=== PATIENT | female | born 1970 | race Hispanic/Latino ===

== ENCOUNTER 2018-02-26 10:40 | Emergency (ER) | payer BC ==
[2018-02-26 10:43] VITALS: BMI 25.3
[2018-02-26 11:00] VITALS: RESP 20; TEMP 98.7; O2SAT 100
[2018-02-26] MEDS ORDERED: Albuterol-Ipratrop 3 mg / 0.5 (3 ml) UD IH STA (11:29)
--- NOTE | 2018-02-26 11:35 | ED PDOC ---
Arrival/HPI - General Chief Complaint: Shortness Of Breath Time Seen by Provider: 02/26/18 10:58 Historian: Patient - History of Present Illness Narrative History of Present Illness (Text): 02/26/18 11:32 47 year old female, with past medical history of asthma, mild COPD, hypothyroidism, sciatica and pneumonia, presents to the Emergency department complaining of ongoing shortness of breath and chest pain since November. Patient informs worsening symptoms this morning associated with palpitations, dizziness and generalized weakness. Patient states chronic constipation but denies any fever, chills, nausea, vomiting, diarrhea, abdominal pain or any other complaints. PMD: Dr. Tarango Time/Duration: > month Symptom Onset: Gradual Symptom Course: Unchanged Quality: Aching Activities at Onset: Light Context: Home Past Medical History - Provider Review Nursing Documentation Reviewed: Yes - Infectious Disease Hx of Infectious Diseases: None - Cardiac Hx Cardiac Disorders: No - Pulmonary Hx Asthma: Yes Hx Bronchitis: Yes - Neurological Hx Migraine: Yes - HEENT Hx HEENT Disorder: No - Renal Hx Renal Disorder: No - Endocrine/Metabolic Hx Hypothyroidism: Yes - Hematological/Oncological Hx Blood Disorders: No - Integumentary Hx Dermatological Disorder: No - Musculoskeletal/Rheumatological Hx Musculoskeletal Disorders: No - Gastrointestinal Hx Irritable Bowel: Yes - Genitourinary/Gynecological Hx Genitourinary Disorders: No - Psychiatric Hx Psychophysiologic Disorder: No Hx Substance Use: No - Surgical History Hx Gastric Bypass Surgery: Yes Hx Hysterectomy: Yes (partial) Hx Tonsillectomy: Yes - Anesthesia Hx Anesthesia: Yes Hx Anesthesia Reactions: No Hx Malignant Hyperthermia: No Family/Social History - Physician Review Nursing Documentation Reviewed: Yes Family/Social History: No Known Family HX Smoking Status: Never Smoked Hx Alcohol Use: No Hx Substance Use: No Allergies/Home Meds Allergies/Adverse Reactions: Allergies No Known Allergies Allergy (Verified 09/02/16 17:40) Home Medications: Home Meds Medication Instructions Recorded Confirmed Levothyroxine Sodium [Synthroid] 0.25 mcg PO DAILY 11/02/15 02/26/18 Escitalopram [Lexapro] 5 mg PO DAILY 08/06/16 02/26/18 Plecanatide [Trulance] 1 mg PO DAILY 02/26/18 02/26/18 Review of Systems - Physician Review All systems were reviewed & negative as marked: Yes - Review of Systems Constitutional: Normal. absent: Fevers Eyes: Normal ENT: Normal Respiratory: SOB Cardiovascular: Chest Pain, Palpitations Gastrointestinal: Constipation (chronic). absent: Abdominal Pain, Diarrhea, Nausea, Vomiting Genitourinary Female: Normal Musculoskeletal: Normal Skin: Normal Neurological: Dizziness Endocrine: Normal Hemo/Lymphatic: Normal Psychiatric: Normal Physical Exam Vital Signs Reviewed: Yes Vital Signs Temp Pulse Resp BP Pulse Ox 02/26/18 12:27 98 H 20 118/62 100 02/26/18 10:40 98.7 F 79 20 122/79 100 Temperature: Afebrile Blood Pressure: Normal Pulse: Regular Respiratory Rate: Normal Appearance: Positive for: Well-Appearing, Non-Toxic, Comfortable Pain Distress: None Mental Status: Positive for: Alert and Oriented X 3, other (flat emotionally) - Systems Exam Head: Present: Atraumatic, Normocephalic Pupils: Present: PERRL Extroacular Muscles: Present: EOMI Conjunctiva: Present: Normal Mouth: Present: Moist Mucous Membranes Neck: Present: Normal Range of Motion Respiratory/Chest: Present: Clear to Auscultation, Good Air Exchange. No: Respiratory Distress, Accessory Muscle Use Cardiovascular: Present: Regular Rate and Rhythm, Normal S1, S2. No: Murmurs Abdomen: No: Tenderness, Distention, Peritoneal Signs Back: Present: Normal Inspection Upper Extremity: Present: Normal Inspection. No: Cyanosis, Edema Lower Extremity: Present: Normal Inspection. No: Edema Neurological: Present: GCS=15, CN II-XII Intact, Speech Normal Skin: Present: Warm, Dry, Normal Color. No: Rashes Psychiatric: Present: Alert, Oriented x 3, Normal Insight, Normal Concentration , Other (Flat emotionally) Medical Decision Making ED Course and Treatment: 02/26/18 11:38 Impression: 47 year old female presents to the Emergency department for shortness of breath and chest pain. Plan: -- Chest X-ray -- Labs -- Albuterol -- solumedrol -- Reassess and disposition Prior Visits: Notes and results from previous visits were reviewed. On 09/02/16 patient presented to the Emergency department for shortness of breath and cough. Patient was discharged home after treatment. Progress Notes: 02/26/18 12:27 EKG: Ordered, reviewed, and independently interpreted the EKG. Rate : 69 BPM Rhythm : NSR Interpretation : No ST-segment elevations or depressions, no T-wave inversions, normal intervals. 02/26/18 12:27 Chest X-ray reviewed, shows hyperinflation. No infiltrate observed. - Lab Interpretations Lab Results: 02/26/18 11:50 02/26/18 11:50 Lab Results 02/26/18 11:50: Sodium 140, Potassium 3.9, Chloride 105, Carbon Dioxide 28, Anion Gap 11, BUN 15, Creatinine 0.7, Est GFR ( Amer) > 60, Est GFR (Non- Af Amer) > 60, Random Glucose 87, Calcium 9.3, Total Bilirubin 0.4, AST 17, ALT 28, Alkaline Phosphatase 57, Lactate Dehydrogenase 350, Total Creatine Kinase 35 , Troponin I < 0.01, Total Protein 6.7, Albumin 3.7, Globulin 3.0, Albumin/ Globulin Ratio 1.2 02/26/18 11:50: PT 11.2, INR 0.97 02/26/18 11:50: WBC 6.7, RBC 4.55, Hgb 12.2, Hct 36.7, MCV 80.7, MCH 26.8, MCHC 33.2, RDW 13.3, Plt Count 230, MPV 9.1, Gran % 58.2, Lymph % (Auto) 36.2 H, [place] % (Auto) 5.1, Eos % (Auto) 0.4 L, Baso % (Auto) 0.1, Gran # 3.90, Lymph # ( Auto) 2.4, [place] # (Auto) 0.3, Eos # (Auto) 0.0, Baso # (Auto) 0.01 - RAD Interpretation Radiology Orders: 02/26/18 11:29 CHEST PORTABLE [RAD] Stat - Medication Orders Current Medication Orders: Discontinued Medications Albuterol/Ipratropium (Duoneb 3 Mg/0.5 Mg (3 Ml) Ud) 3 ml IH STAT STA Stop: 02/26/18 11:30 Last Admin: 02/26/18 11:47 Dose: 3 ml Methylprednisolone (Solu-Medrol) 125 mg IVP STAT STA Stop: 02/26/18 11:30 Last Admin: 02/26/18 11:47 Dose: 125 mg IVP Administration Document 02/26/18 11:47 SRE (Rec: 02/26/18 11:47 SRE [id number]) Charges for Administration # of IVP Administrations 1 - Scribe Statement The provider has reviewed the documentation as recorded by the Scribe Steve San. All medical record entries made by the Scribe were at my direction and personally dictated by me. I have reviewed the chart and agree that the record accurately reflects my personal performance of the history, physical exam, medical decision making, and the department course for this patient. I have also personally directed, reviewed, and agree with the discharge instructions and disposition. Disposition/Present on Arrival - Present on Arrival Any Indicators Present on Arrival: No History of DVT/PE: No History of Uncontrolled Diabetes: No Urinary Catheter: No History of Decub. Ulcer: No History Surgical Site Infection Following: Bariatric Surgery - Disposition Have Diagnosis and Disposition been Completed?: Yes Diagnosis: COPD (chronic obstructive pulmonary disease) Disposition: HOME/ ROUTINE Disposition Time: 13:07 Patient Plan: Discharge Condition: GOOD Discharge Instructions (ExitCare): Chronic Obstructive Pulmonary Disease (COPD) , Including Emphysema Additional Instructions: Tiffany - Everyone of your tests are normal. I believe that you need to work with your Supervisor [employer] to find the right combination of medicines for your COPD. Please call them so you can get the next available appointment. Return to us if any worse or new symptoms occur. Raman- DR. Noman Felix Referrals: Hiren Tarango MD [Primary Care Provider] - Follow up with primary Forms: [employer] ([place]an)
[2018-02-26 12:11] LABS: BASO # 0.01 K/mm3 (0.0-2.0); BASO % 0.1 % (0.0-3.0); EOS % 0.4 % (1.5-5.0); GRAN # 3.9 (1.4-6.5); GRAN % 58.2 % (50.0-68.0); HEMOGLOBIN 12.2 g/dL (12.0-16.0); LYMPH # 2.4 (1.2-3.4); LYMPH % 36.2 % (22.0-35.0); MEAN CELL VOLUME 80.7 fl (80.0-105.0); MEAN CORPUSCULAR HEMOGLOBIN 26.8 pg (25.0-35.0); MEAN CORPUSCULAR HGB CONC 33.2 g/dl (31.0-37.0); MEAN PLATELET VOLUME 9.1 fl (7.0-11.0); MONO # 0.3 (0.1-0.6); MONO % 5.1 % (1.0-6.0); RBC 4.55 10^6/uL (3.5-6.1); RED CELL DISTRIBUTION WIDTH 13.3 % (11.5-14.5); WHITE BLOOD COUNT 6.7 10^3/ul (4.5-11.0)
[2018-02-26 12:20] LABS: ALB/GLOB RATIO 1.2 (1.1-1.8); ALBUMIN 3.7 g/dL (3.0-4.8); ALT/SGPT 28 U/L (7-56); AST/SGOT 17 U/L (14-36); BLOOD UREA NITROGEN 15 mg/dL (7-21); CALCIUM 9.3 mg/dL (8.4-10.5); GFR AFRICAN-AMERICAN > 60; GFR NON-AFRICAN AMERICAN > 60
[2018-02-26 12:21] LABS: INR 0.97 (0.93-1.08); PROTHROMBIN TIME 11.2 SECONDS (9.4-12.5)
[2018-02-26 12:27] VITALS: BP 118/62; PULSE 98
[2018-02-26 12:32] LABS: TROPONIN I < 0.01 ng/mL
--- NOTE | 2018-02-26 12:49 | RAD ---
HISTORY: Dyspnea COMPARISON: 09/02/2016 FINDINGS: LUNGS: No active pulmonary disease. PLEURA: No significant pleural effusion identified, no pneumothorax apparent. CARDIOVASCULAR: Normal. OSSEOUS STRUCTURES: No significant abnormalities. VISUALIZED UPPER ABDOMEN: Normal. OTHER FINDINGS: None. IMPRESSION: No active disease.
--- NOTE | 2018-02-26 17:22 | CARD ---
APPROVED REPORT EKG Measurement Heart [id number] <Conclusion> Poor data quality, interpretation may be adversely affected Normal sinus rhythm Normal ECG
== END 2018-02-26 13:34 | disposition home or self-care (01) ==
LOC: ED 10:40
DX: J44.9 Chronic obstructive pulmonary disease, unspecified (principal)
CPT/HCPCS: 71045; 80053; 82550; 83615; 84484; 85025; 85610; 93005; 94640; 96374; 99284; J2930

== ENCOUNTER 2018-12-30 08:39 | Outpatient (CLI) | payer BC | END 2018-12-30 08:40 | disposition home or self-care (01) | LOC: RAD 08:39 ==

== ENCOUNTER 2019-01-10 10:26 | Outpatient (CLI) | payer BC | END 2019-01-10 10:27 | disposition home or self-care (01) | LOC: RAD 10:26 ==